=== PATIENT | female | born 1985 | race Caucasian/White ===

== ENCOUNTER 2021-12-01 17:44 | Emergency (ER) | payer BC, OTHER ==
[~2021-12-01 17:44] MED LIST: FLINTSTONES1 EAC1 PO; GLUCOPHAGE500 MG PO; MACROBID 100 M100 MG PO; OMEPRAZOLE20 MG PO; TYLENOL 325MG325 MG PO
== END 2021-12-01 18:40 | disposition left against medical advice (07) ==
LOC: ER1 17:44
DX: Z53.21 Procedure and treatment not carried out due to patient leaving prior to being seen by health care provider (principal)